=== PATIENT | male | born 1940 | race Caucasian/White ===

== ENCOUNTER 2018-05-04 02:44 | Observation (INO) | payer MEDICARE, BC ==
[~2018-05-04] VITALS: Ht 177.8 cm; Wt 112.9 kg
--- NOTE | ~2018-05-04 | HEMODYNAMI ---
PATIENT:SERGE MORENO MEDICAL RECORD: [id number] : 44 LOCATION:[facility] D.2130 ADMISSION DATE: 05/04/18 Generatedon:05/04/201815:25 Patient name: SERGE MORENO Patient #: [id number] SSN: : 1940 Date of study: 05/04/2018 Page: Of Hemodynamic Procedure Report Patient Data Patient Demographics Procedure consent was obtained First Name: SERGE Gender: Male Last Name: TIFFANIE : 1940 [facility] Initial: H Age: 78 year(s) Patient #: [id number] Race: Unknown Additional ID: [id number] Contact details Address: [address] [place] [address] State: [place] City: [facility] Zip code: [address] Past Medical History Allergies: No known allergies Admission Admission Data Admission Date: 05/04/2018 Admission Time: 5:26 Room #: D.2130 Height (in.): 69.69 BSA: 2.27 (m2) Height (cm.): 177 BMI: 35.43 (kg/m2) Weight (lbs.): 244.71 Weight (kg.): 111 Lab Results Lab Result Date: 05/04/2018 Lab Result Time: 0:00 Biochemistry Name Units Result Min Max BUN mg/dl 22 --(----)-* 7 18 Creatinine mg/dl 1 --(--*-)-- 0.6 1.3 CBC Name Units Result Min Max Hemoglobin g/dl 16.8 --(---*)-- 13.5 17.5 Procedure Procedure Types Cath Procedure Diagnostic Procedure C [facility] w/Coronaries Sedation Charges Moderate Sedation up to 15 minutes PCI Procedure Coronary Stent Coronary Stent Initial Procedure Description Procedure Date Procedure Date: 05/04/2018 Procedure Start Time: 14:51 Procedure End Time: 15:19 Procedure Staff Name Function Yonathan Cruz MD Performing Physician Kaelyn Richard RT Monitor Carina Oleary RN Nurse Nila Nichols RT Scrub Procedure Data Cath Procedure Fluoroscopy Diagnostic fluoroscopy Total fluoroscopy Time: 8 time: 8 min min Diagnostic fluoroscopy Total fluoroscopy dose: dose: 1745 mGy 1745 mGy Contrast Material Contrast Material Type Amount (ml) Isovue 300 87 Entry Location Entry Primary Successful Side Size Upsize Upsize Entry Closure Grande ccessful Closure Location (Fr) 1 (Fr) 2 (Fr) Remarks Device Remarks Femoral Right 6 Fr Mechanical artery Short Compression Estimated blood loss: 5 ml Diagnostic catheters Device Type Used For End Catheter Placement DIAGNOSTIC Gab 110cm Multi-vessel 5Fr catheter ([id number]) Angiography DIAGNOSTIC Lincoln 110cm 5 Multi-vessel Fr catheter ([id number]) Angiography Procedure Complications No complications Procedure Medications Medication Administration Route Dosage Oxygen etCO2 Nasal cannula 2 l/min Lidocaine 2% added to field 20 Heparin Flush Bag added to field 2 bags (1000units/500ml NS) 0.9% NaCl I.V. 100 ml/hr Radial Cocktail I.A. 1 syringe (Verapomil 2mg/Nitro 400mcg/Heparin 1500units) Versed I.V. 1 mg Fentanyl I.V. 100 mcg Versed I.V. 1 mg Fentanyl I.V. 50 mcg Fentanyl I.V. 50 mcg Heparin Bolus I.V. 42121 units Hemodynamics Rest BSA: 2.27 (m2) HGB: 16.8 (g/dl) O2 Consumption: Estimated: 259.71 (ml/min) O2 Co nsumption indexed: Estimated:114.41 (ml/min/m) Heart Rate: 69 (bpm) Pressure Samples Time Site Value (mmHg) Purpose Heart Use Rate(bpm) 14:56 LV 137/-1,20 Snapshot 67 Gradients Valve Time Site Site Mean SEP/DFP Peak To Heart Use 1 2 (mmHg) (sec/min) Peak Rate (mmHg) (bpm) Aortic 14:56 LV AO 68 Snapshots Pre Cath Intra NCS Post Cath Vital Signs Time Heart Resp SPO2 etCO2 NIBP (mmHg) Rhythm Pain Sedation Rate (ipm) (%) (mmHg) Status Level (bpm) 14:38:49 71 22 95 0 150/79(115) NSR 0 (11) 10(A) , No pain 14:43:07 70 22 93 39.9 139/77(120) NSR 0 (11) 10(A) , No pain 14:47:21 64 19 94 0 122/76(107) NSR 0 (11) 10(A) , No pain 14:51:26 63 17 95 37.6 132/80(104) NSR 0 (11) 9(A) , No pain 14:55:38 69 20 93 40.6 117/69(102) NSR 0 (11) 9(A) , No pain 14:59:44 66 13 94 33.1 122/77(92) NSR 0 (11) 9(A) , No pain 15:03:50 64 12 92 21.8 139/79(98) NSR 0 (11) 9(A) , No pain 15:08:04 70 14 93 42.9 139/77(98) NSR 0 (11) 9(A) , No pain 15:12:20 70 13 93 11.3 123/73(97) NSR 0 (11) 10(A) , No pain 15:16:28 70 12 92 15.8 125/75(94) NSR 0 (11) 10(A) , No pain Medications Time Medication Route Dose Verified Delivered Reason Not es Effectiveness by by 14:46:06 Oxygen etCO2 2 l/min Yonathan Buffie used for Nasal Ryan Oleary RN procedure cannula 14:46:15 Lidocaine 2% added 20ml Yonathan Yonathan for local to vial Ryan Cruz MD anesthetic field 14:46:34 Heparin Flush added 2 bags Yonathan Yonathan used for Bag to Ryan Cruz MD procedure (1000units/500ml field NS) 14:46:44 0.9% NaCl I.V. 100 Yonathan Buffie Per physician ml/hr Ryan Oleary RN 14:46:51 Radial Cocktail I.A. 1 Yonathan Yonathan for (Verapomil syringe Ryan Cruz MD vasodilation 2mg/Nitro 400mcg/Heparin 1500units) 14:47:06 Versed I.V. 1 mg Yonathan Buffie for sedation Ryan Oleary RN 14:47:12 Fentanyl I.V. 100 mcg Yonathan Buffie for sedation Ryan Oleary RN 14:49:09 Versed I.V. 1 mg Yonathan Buffie for sedation Ryan Oleary RN 14:49:13 Fentanyl I.V. 50 mcg Yonathan Buffie for sedation Cruz MD Oleary RN 14:53:54 Fentanyl I.V. 50 mcg Yonathan Lim for sedation Ryan Oleary RN 15:09:54 Heparin Bolus I.V. 11,500 Yonathan Lim for nilesh ified units Ryan Oleary RN anticoagulation with dr cruz Procedure Log Time Note 14:14:55 Patient Height : 69.69 inches 14:15:02 Patient Weight : 244.71 lbs 14:15:36 Lab Result : BUN 22 mg/dl 14:15:36 Lab Result : Hemoglobin 16.8 g/dl 14:15:36 Lab Result : Creatinine 1 mg/dl 14:15:37 Carina Oleary RN sent for patient. Start room use. 14:36:29 Diagnostic Cath status Elective 14:36:40 Time tracking: Regular hours (M-F 7:00 - 5:00) 14:36:46 Plan of Care:Hemodynamics will remain stable., Cardiac rhythm will remain stable., Comfort level will be maintained., Respiratory function will remain adequate., Patient/ family verbilizes understanding of procedure., Procedure tolerated without complication., Recovers from procedure without complications.. 14:37:31 Patient received from Med II to CCL 2 Alert and oriented. Tansferred to table in Supine position. 14:37:33 Warm blankets applied, and kandi hugger turned on for patient comfort. 14:37:34 Correct patient and procedure confirmed by team. 14:37:36 Signed procedure consent form obtained from patient. 14:37:38 ECG and BP/O2 sat monitors applied to patient. 14:37:39 Vital chart was started 14:37:40 Baseline sample Acquired. 14:37:44 Rhythm: sinus rhythm 14:37:46 Full Disclosure recording started 14:38:06 H&P Date Dictated: 05/04/2018 Within 30 days and on chart.. 14:38:09 Pre-procedure instructions explained to patient. 14:38:10 Pre-op teaching completed and patient verbalized understanding. 14:38:17 Family unavailable. 14:38:22 Patient NPO since Breakfast. 14:38:33 Patient allergic to No known allergies 14:38:42 Is patient on blood thinner?Yes 14:38:46 ACC The patient was administered the following blood thiners within the last 24 hours: ACCPlavix 14:38:52 Patient diabetic? No. 14:38:56 ----Pre-sedation anethsthesia assessment.---- 14:38:59 Previous problem with sedation/anesthesia? No ? 14:39:00 Snore? Yes 14:39:02 Sleep apnea? No 14:39:03 Deviated septum? No 14:39:04 Opens mouth fully? Yes 14:39:05 Sticks out tongue? Yes 14:39:09 Airway obstruction? No ? 14:39:12 Dentures? No ? 14:39:27 Pre procedure: right dorsailis pedis pulse 2+ Normal; easily identifiable; not easily obliterated 14:39:32 Patient pain scale 0/10 ?. 14:39:46 IV patent on arrival in left hand with 0.9% NaCl at [facility]. 14:39:53 Lab results completed and on chart. 14:40:03 Right Radial & Right Groin area was prepped with chlora-prep and draped in sterile fashion 14:40:05 Alarms reviewed by R. N. 14:40:06 Sharps counted by scrub and verified by R.N. 14:40:15 Use device set Radial Dx or PCI 14:40:16 ACIST Syringe (77413) opened to sterile field. 14:40:17 Medline Cath Pack ([id number]) opened to sterile field. 14:40:18 Bag Decanter (2002S) opened to sterile field. 14:40:19 DIAGNOSTIC WIRE .035 260cm J wire (915650) opened to sterile field. 14:40:19 ACIST Hand Control (46716) opened to sterile field. 14:40:20 ACIST Manifold (15499) opened to sterile field. 14:40:21 Tegaderm 4 x 4 (1626W) opened to sterile field. 14:40:21 MBrace Wrist Support ([id number]) opened to sterile field. 14:40:25 SHEATH 6FR Slender (801060) opened to sterile field. 14:43:01 Physician arrived 14:43:02 --------ALL STOP TIME OUT------ 14:43:02 Final Timeout: patient, procedure, and site verified with staff and physician. All members of the team are in agreement. 14:43:04 Right Radial & Right Groin site verified by team. 14:43:07 Physical assessment completed. ASA score P 2 - A patient with mild systemic disease as per Yonathan Cruz MD. 14:43:10 Sedation plan: IV Moderate Sedation Medication:Versed, Fentanyl 14:46:06 Oxygen 2 l/min etCO2 Nasal cannula was administered by Carina Oleary RN; used for procedure; 14:46:15 Lidocaine 2% 20ml vial added to field was administered by Yonathan Cruz MD; for local anesthetic; 14:46:34 Heparin Flush Bag (1000units/500ml NS) 2 bags added to field was administered by Yonathan Cruz MD; used for procedure; 14:46:44 0.9% NaCl 100 ml/hr I.V. was administered by Carina Oleary RN; Per physician; 14:46:51 Radial Cocktail (Verapomil 2mg/Nitro 400mcg/Heparin 1500units) 1 syringe I.A. was administered by Yonathan Cruz MD; for vasodilation; 14:47:06 Versed 1 mg I.V. was administered by Carina Oleary RN; for sedation; 14:47:12 Fentanyl 100 mcg I.V. was administered by Carina Oleary RN; for sedation; 14:49:09 Versed 1 mg I.V. was administered by Carina Oleary RN; for sedation; 14:49:13 Fentanyl 50 mcg I.V. was administered by Carina Oleary RN; for sedation; 14:51:08 Procedure started. 14:51:15 Local anesthetic to right radial artery with Lidocaine 2% by Yonathan Cruz MD.INITIAL ACCESS ONLY 14:52:23 A 6 Fr Short sheath was inserted into the Right Femoral artery 14:53:38 A DIAGNOSTIC Gab 110cm 5Fr catheter (706752) was advanced over the wire and used for Multi-vessel Angiography. 14:53:54 Fentanyl 50 mcg I.V. was administered by Carina Oleary RN; for sedation; 14:56:15 LV hemodynamics recorded. 14:56:16 LV gram done using BILL 14:56:19 Injector settings: Ml/sec: 5, Volume: 15, 14:56:28 EF : 55 % 14:58:22 Catheter removed. 14:58:49 A DIAGNOSTIC Lincoln 110cm 5 Fr catheter (560527) was advanced over the wire and used for Multi-vessel Angiography. 15:00:37 RCA angiography performed. 15:00:40 Injector settings: Ml/sec: 3, Volume: 6, 15:01:22 Catheter removed. 15:04:09 5f ultimate performa opened to field and used for multi-vessel angiography 15:04:15 LCA angiography performed. 15:04:17 Injector settings: Ml/sec: 3, Volume: 6, 15:05:56 Catheter removed. 15:05:57 Proceeding to intervention. 15:06:15 INFLATOR Merit BasixCompak (LT3594) opened to sterile field. 15:06:16 GUIDE 6FR XBLAD 3.5 catheter ([id number]) opened to sterile field. 15:06:24 BMW 300cm [place] 2 J wire ([id number]) opened to sterile field. 15:06:41 6 Fr xblad 3.5 guide catheter was inserted over the wire 15:06:51 TUBING High Pressure Extension Tubing (Ryan) (EX2127A) opened to sterile field. 15:09:54 Heparin Bolus 11,500 units I.V. was administered by Carina Oleary RN; for anticoagulation; verified with dr cruz 15:10:18 bmw wire advanced. 15:14:57 Place stent Inflation Number: 1 A FRANCES OTW 3.5 x 26 stent ([id number]) was prepped and advanced across the Mid LAD. The stent was deployed at 14 JENNIE for 0:10 (min:sec). 15:16:17 Stent catheter was removed intact over wire. 15:16:18 Wire removed. 15:16:19 Guide catheter removed. 15:16:29 TR BAND Standard ([id number]) opened to sterile field. 15:17:30 Sheath removed intact; hemostasis achieved with Mechanical Compression to the Right Femoral artery. 15:17:32 Procedure ended.(Physican Out) 15:17:44 Fluoroscopy time 08.00 minutes. 15:17:55 Fluoroscopy dose: 1745 mGy 15:17:55 Flurop Dose total: 1745 15:17:58 Contrast amount:Isovue 300 87ml. 15:18:00 Sharps counted by scrub and verified by R.N. 15:18:02 Insertion/operative site no bleeding no hematoma. 15:18:18 Post right radial artery:stable 15:18:20 Post Procedure Pulses reassessed and unchanged 15:18:22 Post procedure rhythm: unchanged. 15:18:25 Estimated blood loss: 5 ml 15:18:27 Post procedure instruction explained to patient.Patient verbalizes understanding. 15:18:27 Patient needs reinforcement of post procedure teaching. 15:18:50 Procedure type changed to Cath procedure, Diagnostic procedure, LHC, C w/Coronaries, Sedation Charges, Moderate Sedation up to 15 minutes, PCI procedure, Coronary Stent, Coronary Stent Initial 15:18:52 Procedure and supply charges have been captured, reviewed, submitted and are correct. 15:19:00 Procedure Complication : No complications 15:19:08 Vital chart was stopped 15:19:09 See physician's report for complete and final results. 15:19:16 Report given to Med II. 15:19:19 Patient transfered to Med II with Stretcher. 15:19:23 Procedure ended. 15:19:23 Full Disclosure recording stopped 15:19:31 ACC-PCI Only Patient was given prescriptions, or instructed by Yonathan Cruz MD to start/continue the following medications upon discharge: Plavix 15:19:33 End room use (Document Last) Intervention Summary Intervention Notes Time ActionType Lesion and Equipment Action# Pressure Duration Attributes Used 15:14:57 Place stent Mid LAD FRANCES OTW 3.5 1 14 00:10 x 26 stent ([id number]) Device Usage Item Name Manufacture Quantity Catalog Hospital Part Current Mini [facility] Lot# / Number Charge Number Stock Stock Serial# Code ACIST Syringe Acist 1 05455 324170 537286 579082 20 (94916) Medical Systems Inc Medline Cath Medline 1 [id number] 228743 49806 174383 5 Pack ([id number]) Bag Decanter Microtek 1 2001S 892565 86019 355871 5 () Medical Inc. DIAGNOSTIC [facility] Gil[place] 1 713984 488818 223317 007553 30 WIRE .035 260cm J wire (359740) ACIST Hand Acist 1 37139 537344 709121 885972 5 Control Medical (63753) Systems Inc ACIST Acist 1 67467 980154 880416 213566 5 Manifold Medical (95995) Systems Inc Tegaderm 4 x 3M 1 1626W 077391 565063 298493 5 4 (1626W) MBrace Wrist Advanced 1 140-0250-00 407853 24339 549892 5 Support Vascular (997993216) Dynamics SHEATH 6FR Terumo 1 [id number] 008961 368954 910825 40 Slender (80-1060) DIAGNOSTIC Terumo 1 40-5023 937931 241591 565222 5 Gab 110cm 5Fr catheter (270936) DIAGNOSTIC Terumo 1 40-5013 780292 116587 976336 5 Lincoln 110cm 5 Fr catheter (292124) INFLATOR Merit 1 RT1514 731449 630780 828391 15 Merit Medical BasixCompak (GG0634) GUIDE 6FR Cardinal 1 [id number] 212598 467081 648449 10 XBLAD 3.5 Health catheter (62769502) BMW 300cm Solomon 1 [id number] 693273 109810 006700 5 [place] 2 J Vascular wire (8454352V) TUBING High Merit 1 [id number] 356236 72918 900749 10 Pressure Medical Extension Tubing (Cruz) (LT6829P) FRANCES OTW 3.5 Medtronic 1 [id number] 451867 8723691 820339 5 [id number] x 26 stent ([id number]) TR BAND Terumo 1 [id number] 814133 358792 233696 40 Standard ([id number]) Signature Audit [place] Stage Time Signature Unsigned Intra-Procedure 05/04/2018 Kaelyn Richard 3:24:58 PM RT(R) Signatures Monitor : Kaleyn Richard RT Signature : Date : Time : [facility] [address] [place] [address]
--- NOTE | ~2018-05-04 | MORECARE ---
CASE MANAGEMENT DISCHARGE SUMMARY PATIENT: SERGE MORENO UNIT: [id number] ADM DATE: 05/04/18 AGE: 78 : 42 SEX: M ROOM/BED: D.2130 AUTHOR: CAROL YANG PHYSICIAN: REFERRING PHYSICIAN: TONJA CASANOVA MD DATE OF SERVICE: 05/06/18 Discharge Plan Patient Name: SERGE MORENO [facility] [facility] 1940 Planned Disposition: Home Anticipated Discharge Date: 05/05/18 Discharge Date: 05/05/2018 Expected LOS: 1 Initial Reviewer: [email or web address] Initial Review Date: 05/06/2018 Generated: 05/06/18 10:09 am Coverage Notice Reviewer: [email or web address] Magdalena Erwin Notice Issued Date-Time: 05/04/2018 14:20 Notice Type: Medicare Outpatient Observation Notice Notice Delivered To: Patient Relationship to Patient: Self Staff Nuclear Medicine Technologist Name: Delivery Method: HAND - Hand Delivered Cherelle Days: Prior Verbal Notification: Recipient Understood Notice: Yes Recipient Signature: Yes Med Rec Note Co-signed by Attending: Coverage Notice Comment: Patient Name: SERGE MORENO Page [phone] at 0909 All edits/amendments must be made on the electronic document DICTATION DATE: 05/06/18907 ALODIZE MACHINE HELPER: BARRY 05/06/18907 RPT#: [id number] DC DATE:05/05/18 STATUS: DIS IN [facility] [address] [place] [address] END OF REPORT
[2018-05-04 03:02] LABS: BASOPHILS 0.2 % (0-2); EOSINOPHILS 0.2 % (0-7); HEMATOCRIT 49.2 % (42.0-54.0); HEMOGLOBIN 16.8 g/dL (13.5-17.5); IMMATURE GRANULOCYTES 0.3 % (0-5); LYMPHOCYTES 5.5 % (15-50); MCH 31.2 pg (26.0-34.0); MCHC 34.1 g/dL (31.0-37.0); MCV 91.4 fL (80.0-100.0); MEAN PLATELET VOLUME 10.1 fL (7.4-10.4); MONOCYTES 4.8 % (2-11); PLATELET COUNT 205 10x3/uL (130-400); RBC 5.38 10x6/uL (4.20-6.10); RDW 13.5 % (11.5-14.5); WBC 18.3 10x3/uL (4.8-10.8)
[2018-05-04 03:16] LABS: ALBUMIN 3.4 g/dL (3.4-5.0); ALKALINE PHOSPHATASE 76 U/L (46-116); ALT (SGPT) 29 U/L (10-68); BILIRUBIN - TOTAL 0.55 mg/dL (0.2-1.3); CALC OSMOLALITY 290 mosm/kg (275-300); CALCIUM 9.1 mg/dL (8.5-10.1); CHLORIDE - SERUM 105 mmol/L (98-107); GLUCOSE 152 mg/dL (74-106); POTASSIUM - SERUM 4.1 mmol/L (3.5-5.1); PROTEIN - SERUM 7.4 g/dL (6.4-8.2); SODIUM 143 mmol/L (136-145); UREA NITROGEN 22 mg/dL (7-18); eGFR NON AFRICAN AMERICAN 77 mL/min (90-120)
[2018-05-04 03:31] LABS: AMYLASE - SERUM 32 U/L (25-115); CREATINE KINASE 79 UL (21-232); LIPASE 130 U/L (73-393); MAGNESIUM - SERUM 1.8 mg/dL (1.8-2.4)
[2018-05-04 03:33] LABS: TROPONIN-I 0.115 ng/mL (0.000-0.060)
[2018-05-04 05:01] VITALS: BP 143/69
[2018-05-04 06:12] VITALS: BP 131/67; BMI 33.0
[2018-05-04] MEDS ORDERED: LIPITOR10 MG PO (09:50)
[2018-05-04] MEDS ORDERED: VESICARE10 MG PO (09:50)
[2018-05-04] MEDS ORDERED: NEXIUM40 MG PO (09:51)
[2018-05-04] MEDS ORDERED: CENTRUM MEN'S1 EACH PO (09:51)
[2018-05-04] MEDS ORDERED: ACETAMINOPHEN325 MG PO (09:52)
[2018-05-04] MEDS ORDERED: GLUCOSAMINE HC500 MG PO (09:53)
[2018-05-04 12:58] VITALS: BP 140/64
[2018-05-04 21:04] VITALS: BP 131/69
[2018-05-05] VITALS: BP 133/52
[2018-05-05 05:03] VITALS: BP 118/76
[2018-05-05 06:02] LABS: BASOPHILS 0.5 % (0-2); EOSINOPHILS 2.3 % (0-7); HEMATOCRIT 46.6 % (42.0-54.0); HEMOGLOBIN 15.1 g/dL (13.5-17.5); IMMATURE GRANULOCYTES 0.2 % (0-5); MCH 30.4 pg (26.0-34.0); MCHC 32.4 g/dL (31.0-37.0); MEAN PLATELET VOLUME 10.5 fL (7.4-10.4); MONOCYTES 11.7 % (2-11); NEUTROPHILS 66.3 % (40-80); PLATELET COUNT 199 10x3/uL (130-400); RBC 4.97 10x6/uL (4.20-6.10); RDW 13.9 % (11.5-14.5)
[2018-05-05 06:27] LABS: MCV 93.8 fL (80.0-100.0); WBC 8.1 10x3/uL (4.8-10.8)
[2018-05-05 06:38] LABS: CALCIUM 8.4 mg/dL (8.5-10.1); CREATININE - SERUM 1.1 mg/dL (0.6-1.3)
[2018-05-05 08:56] VITALS: BP 139/76
[2018-05-05 11:04] VITALS: Ht 177.8 cm; Wt 112.9 kg
[2018-05-05 11:58] VITALS: BP 135/63
[2018-05-05] MEDS ORDERED: PLAVIX75 MG PO (13:45)
[2018-05-05] MEDS ORDERED: COREG 3.1253.125 MG PO (15:23)
[2018-05-05] MEDS ORDERED: ASPIRIN81 MG PO (15:24)
== END 2018-05-05 15:38 | disposition home or self-care (01) ==
LOC: EDSEX 02:44 → D.ER 02:44 → D.M2 05:26 → OBSVTIME 05:26 → D.M2 05:26
PROVIDERS: Family Medicine
DX: I21.4 Non-ST elevation (NSTEMI) myocardial infarction (principal); I25.119 Atherosclerotic heart disease of native coronary artery with unspecified angina pectoris
CPT/HCPCS: 93458; C9600

== ENCOUNTER → 2019-10-07 09:45 | Outpatient (CLI) | payer MEDICARE, BC ==
[2018-05-05 11:04] VITALS: BMI 35.7
[~2019-10-07 09:45] MED LIST: ACETAMINOPHEN325 MG PO; ASPIRIN81 MG PO; CENTRUM MEN'S1 EACH PO; COREG 3.1253.125 MG PO; GLUCOSAMINE HC500 MG PO; LIPITOR10 MG PO; NEXIUM40 MG PO; PLAVIX75 MG PO; VESICARE10 MG PO
== END | disposition home or self-care (01) ==
LOC: D.HCCARDIO 09:45
PROVIDERS: ATTEND Internal Medicine Cardiovascular Disease
DX: I25.119 Atherosclerotic heart disease of native coronary artery with unspecified angina pectoris (principal); I10 Essential (primary) hypertension; K21.9 Gastro-esophageal reflux disease without esophagitis

== ENCOUNTER → 2019-10-21 06:21 | Outpatient (CLI) | payer MEDICARE, BC ==
[~2019-10-21] VITALS: Ht 177.8 cm; Wt 108.7 kg
--- NOTE | ~2019-10-21 | HEMODYNAMI ---
PATIENT:SERGE MORENO MEDICAL RECORD: [id number] : 44 LOCATION:[facility] ADMISSION DATE: 10/21/19 Generatedon:10/21/20199:39 Patient name: SERGE MORENO Patient #: [id number] : 1940 Date of study: 10/21/2019 Page: Of Hemodynamic Procedure Report Patient Data Patient Demographics Procedure consent was obtained First Name: SERGE Gender: Male Last Name: TIFFANIE : 1940 [facility] Initial: FAITH Age: 79 year(s) Patient #: [id number] Race: Unknown SSN: [id number] Additional ID: [id number] Contact details Address: [address] [place] [address] State: [place] City: [facility] Zip code: [address] Past Medical History Allergies: No known allergies Admission Admission Data Admission Date: 10/21/2019 Admission Time: 6:21 Arrival Date: 10/21/2019 Arrival Time: 0:00 Height (in.): 70 BSA: 2.26 (m2) Height (cm.): 177.8 BMI: 34.48 (kg/m2) Weight (lbs.): 240.31 Weight (kg.): 109 Lab Results Lab Result Date: 10/21/2019 Lab Result Time: 0:00 Biochemistry Name Units Result Min Max BUN mg/dl 19 --(----)*- 7 18 Creatinine mg/dl 1.1 --(--*-)-- 0.6 1.3 eGFR ml/min 69 *-(----)-- 90 120 NONAFRICAN CBC Name Units Result Min Max Hematocrit % 47.3 --(-*--)-- 42 54 Hemoglobin g/dl 15.7 --(--*-)-- 13.5 17.5 Procedure Procedure Types Cath Procedure Diagnostic Procedure LHC LHC w/Coronaries Sedation Charges Moderate Sedation up to 15 minutes Procedure Description Procedure Date Procedure Date: 10/21/2019 Procedure Start Time: 9:20 Procedure End Time: 9:37 Procedure Staff Name Function Yonathan Davis MD Performing Physician Nila Nichols RT Monitor Jacqui Hudson RT Scrub Simi Moreno RN Nurse Procedure Data Cath Procedure Fluoroscopy Diagnostic fluoroscopy Total fluoroscopy Time: 4.9 time: 4.9 min min Diagnostic fluoroscopy Total fluoroscopy dose: 833 dose: 833 mGy mGy Contrast Material Contrast Material Type Amount (ml) Isovue 300 39 Entry Location Entry Primary Successful Side Size Upsize Upsize Entry Closure [place] ccessful Closure Location (Fr) 1 (Fr) 2 (Fr) Remarks Device Remarks Radial Right 6 Fr Mechanical artery Short Compression Estimated blood loss: 10 ml Diagnostic catheters Device Type Used For End Catheter Placement DIAGNOSTIC Gab 110cm Procedure 5Fr catheter ([id number]) DIAGNOSTIC [place] 110cm 5 Procedure Fr catheter ([id number]) Procedure Complications No complications Procedure Medications Medication Administration Route Dosage 0.9% NaCl I.V. 100 ml/hr Oxygen etCO2 Nasal cannula 2 l/min Lidocaine 2% added to field 20 Heparin Flush Bag added to field 2 bags (1000units/500ml NS) Radial Cocktail added to field 1 syringe (Verapamil 2mg/Nitro 400mcg/Heparin 1500units) Versed I.V. 2 mg Fentanyl I.V. 50 mcg Versed I.V. 2 mg Fentanyl I.V. 50 mcg Hemodynamics Rest BSA: 2.26 (m2) HGB: 15.7 (g/dl) O2 Consumption: Estimated: 250.79 (ml/min) O2 Co nsumption indexed: Estimated:110.97 (ml/min/m) Heart Rate: 60 (bpm) Pressure Samples Time Site Value (mmHg) Purpose Heart Use Rate(bpm) 9:25 LV 127/-6,15 Snapshot 66 Gradients Valve Time Site Site Mean SEP/DFP Peak To Heart Use 1 2 (mmHg) (sec/min) Peak Rate (mmHg) (bpm) Aortic 9:26 LV AO 73 Snapshots Pre Cath Intra NCS Post Cath Vital Signs Time Heart Resp SPO2 etCO2 NIBP (mmHg) Rhythm Pain Sedation Rate (ipm) (%) (mmHg) Status Level (bpm) 9:08:14 67 14 97 35.1 141/73(127) NSR 0 (11) 10(A) , No pain 9:12:38 61 16 97 38.9 141/74(109) NSR 0 (11) 10(A) , No pain 9:16:56 71 17 96 37.4 128/84(105) NSR 0 (11) 10(A) , No pain 9:21:12 65 16 97 35.9 121/81(102) NSR 0 (11) 10(A) , No pain 9:25:32 74 16 98 38.9 105/62(94) NSR 0 (11) 10(A) , No pain 9:29:44 65 15 97 37.4 107/65(98) NSR 0 (11) 9(A) , No pain 9:34:43 66 14 91 39.6 Measuring NSR 0 (11) 9(A) , No pain 9:34:54 68 14 92 38.9 115/65(101) NSR 0 (11) 10(A) , No pain Medications Time Medication Route Dose Verified Delivered Reason Notes Ef fectiveness by by 9:07:04 0.9% NaCl I.V. 100 Yonathan Simi used for ml/hr Ryan Moreno bass fisher 9:07:18 Oxygen etCO2 2 l/min Yonathan Simi used for Nasal Ryan Moreno procedure cannula RN 9:07:23 Lidocaine 2% added 20ml Yonathan Yonathan for local to vial Ryan Davis MD anesthetic field 9:07:28 Heparin Flush added 2 bags Yonathan Yonathan used for Bag to Ryan Davis MD procedure (1000units/500ml field NS) 9:07:37 Radial Cocktail added 1 Yonathan Yonathan used for (Verapamil to syringe Ryan Davis MD procedure 2mg/Nitro field 400mcg/Heparin 1500units) 9:18:41 Versed I.V. 2 mg Yonathan Simi for Fu lly awake @ Ryan Moreno sedation 9:30:16 RN 9:18:47 Fentanyl I.V. 50 mcg Yonathan Simi for Fu lly awake @ Ryan Moreno sedation 9:30:19 RN 9:26:03 Fentanyl I.V. [address] Simi [address] Moreno sedation sleeping @ RN 9:30:49 9:26:54 Versed I.V. [address] for [address] Moreno sedation sleeping @ RN 9:31:03 Procedure Log Time Note 8:47:43 Informed consent obtained and on chart 8:50:30 Simi Moreno RN sent for patient. Start room use. 8:58:11 Procedure Status Elective Heart Cath (OP). 8:58:12 Time tracking: Regular hours (M-F 7:00 - 5:00) 8:58:16 Plan of Care:Hemodynamics will remain stable., Cardiac rhythm will remain stable., Comfort level will be maintained., Respiratory function will remain adequate., Patient/ family verbilizes understanding of procedure., Procedure tolerated without complication., Recovers from procedure without complications.. 8:58:28 H&P Date Dictated: 10/05/2019 Within 30 days and on chart., H&P Addendum completed by physician on day of procedure. (MUST COMPLETE FOR ALL OUTPATIENTS). 8:58:36 Patient allergic to No known allergies 8:59:08 Lab Result : BUN 19 mg/dl 8:59:08 Lab Result : Creatinine 1.1 mg/dl 8:59:08 Lab Result : eGFR NONAFRICAN 69 ml/min 8:59:08 Lab Result : Hemoglobin 15.7 g/dl 8:59:08 Lab Result : Hematocrit 47.3 % 8:59:50 Patient Weight : 240.31 lbs 8:59:55 Patient Height : 70 inches 8:59:59 Arrival Date: 10/21/2019 12:00:00 AM 9:06:56 Vital chart was started 9:07:04 0.9% NaCl 100 ml/hr I.V. was administered by Simi Moreno RN; used for procedure; Verbal order read back and verified. 9:07:18 Oxygen 2 l/min etCO2 Nasal cannula was administered by Simi Moreno RN; used for procedure; Verbal order read back and verified. 9:07:23 Lidocaine 2% 20ml vial added to field was administered by Yonathan Davis MD; for local anesthetic; Verbal order read back and verified. 9:07:28 Heparin Flush Bag (1000units/500ml NS) 2 bags added to field was administered by Yonathan Davis MD; used for procedure; Verbal order read back and verified. 9:07:37 Radial Cocktail (Verapamil 2mg/Nitro 400mcg/Heparin 1500units) 1 syringe added to field was administered by Yonathan Davis MD; used for procedure; Verbal order read back and verified. 9:12:41 Warm blankets applied, and kandi hugger turned on for patient comfort. 9:12:43 Correct patient and procedure confirmed by team. 9:12:44 Baseline sample Acquired. 9:12:44 ECG and BP/O2 sat monitors applied to patient. 9:12:47 Full Disclosure recording started 9:12:55 Family in waiting room. 9:12:58 Patient NPO since Midnight. 9:13:01 Is the patient allergic to Iodine/contrast media? No. 9:13:04 Was the patient premedicated? Yes 9:13:08 Is patient on blood thinner?No 9:13:11 Patient diabetic? No. 9:13:16 Snore? Yes 9:13:17 Sleep apnea? No 9:13:23 Dentures? No ? 9:13:28 Patient pain scale 0/10 ?. 9:13:34 IV patent on arrival in left forearm with 0.9% NaCl at KVO. 9:13:41 Lab results completed and on chart. 9:13:47 Right Radial & Right Groin area was prepped with chlora-prep and draped in sterile fashion 9:13:49 Alarms reviewed by R. N. 9:13:49 Sharps counted by scrub and verified by R.N. 9:13:51 Physician paged 9:15:01 Physician arrived 9:17:31 Zero performed for pressure channel P1 9:17:34 --------ALL STOP TIME OUT------ 9:17:35 Final Timeout: patient, procedure, and site verified with staff and physician. All members of the team are in agreement. 9:17:37 Right Radial & Right Groin site verified by team. 9:17:42 Fire Safety Assessment: A--An alcohol-based skin anteseptic being used preoperatively., C--Open oxygen or nitrous oxide is being used., D--An ESU, laser, or fiber-optic light is being used. 9:17:49 Physical assessment completed. ASA score P 2 - A patient with mild systemic disease as per Yonathan Davis MD. 9:18:02 2) 60-89 Mildly reduced kidney function, and other findings (as for stage 1) point to kidney disease. 9:18:05 Maximum allowable contrast dose (3.7 X eGFR X 0.75)191 ml. 9:18:11 Sedation plan: IV Moderate Sedation Medication:Versed, Fentanyl 9:18:24 Use device set Radial Dx or PCI 9:18:27 ACIST Syringe (31493) opened to sterile field. 9:18:27 Medline Cath Pack ([id number]) opened to sterile field. 9:18:28 Bag Decanter (2002S) opened to sterile field. 9:18:29 ACIST Hand Control (05569) opened to sterile field. 9:18:29 ACIST Manifold (15572) opened to sterile field. 9:18:30 Tegaderm 4 x 4 (1626W) opened to sterile field. 9:18:31 MBrace Wrist Support ([id number]) opened to sterile field. 9:18:32 NEEDLE Cook 21G 4cm Radial (I25162) opened to sterile field. 9:18:34 EMERALD Guide Wire (504-933) opened to sterile field. 9:18:35 SHEATH 6FR RAIN (7243704) opened to sterile field. 9:18:41 Versed 2 mg I.V. was administered by Simi Moreno RN; for sedation; Verbal order read back and verified. 9:18:47 Fentanyl 50 mcg I.V. was administered by Simi Moreno RN; for sedation; Verbal order read back and verified. 9:19:54 Procedure started. 9:20:12 Local anesthetic to right radial artery with Lidocaine 2% by Yonathan Davis MD.INITIAL ACCESS ONLY 9:23:01 A 6 Fr Short sheath was inserted into the Right Radial artery 9:24:57 A DIAGNOSTIC Gab 110cm 5Fr catheter (464800) was advanced over the wire and used for Procedure. 9:25:38 LV angiography performed. 9:26:03 Fentanyl 50 mcg I.V. was administered by Simi Moreno RN; for sedation; Verbal order read back and verified. 9:26:11 EF : 55 % 9:26:54 Versed 2 mg I.V. was administered by Simi Moreno RN; for sedation; Verbal order read back and verified. 9:28:49 Catheter removed. 9:28:57 A DIAGNOSTIC [place] 110cm 5 Fr catheter (543606) was advanced over the wire and used for Procedure. 9:30:16 Effectiveness of Versed delivered @ 9:18:41 is: Fully awake 9:30:19 Effectiveness of Fentanyl delivered @ 9:18:47 is: Fully awake 9:30:49 Effectiveness of Fentanyl delivered @ 9:26:03 is: Mostly sleeping 9:31:03 Effectiveness of Versed delivered @ 9:26:54 is: Mostly sleeping 9:31:37 RCA angiography performed. 9:32:26 LCA angiography performed. 9:34:28 Catheter removed. 9:34:47 Sheath removed intact; hemostasis achieved with Mechanical Compression to the Right Radial artery. 9:34:49 Procedure ended.(Physican Out) 9:35:06 ZEPHYR REGULAR TR BAND (147679) opened to sterile field. 9:35:19 Fluoroscopy time 04.90 minutes. 9:35:26 Fluoroscopy dose: 833 mGy 9:35:26 Flurop Dose total: 833 9:35:33 Dose Area Product 89725 mGy/cm. 9:35:37 Contrast amount:Isovue 300 39ml. 9:35:39 Maximum allowable dose exceeded? No. 9:35:45 [place] band inflated with 10cc of air. 9:36:21 Insertion/operative site no bleeding no hematoma. 9:36:49 Post-procedure physical assessment completed. ASA score P 3 - A patient with severe systemic disease as per Yonathan Davis MD. 9:36:52 Post procedure rhythm: sinus rhythm 9:36:54 Estimated blood loss: 10 ml 9:36:56 Post procedure instruction explained to patient.Patient verbalizes understanding. 9:36:57 Patient needs reinforcement of post procedure teaching. 9:37:11 Procedure type changed to Cath procedure, Diagnostic procedure, LHC, C w/Coronaries, Sedation Charges, Moderate Sedation up to 15 minutes 9:37:13 Procedure and supply charges have been captured, reviewed, submitted and are correct. 9:37:32 Procedure Complication : No complications 9:37:35 Vital chart was stopped 9:37:39 [facility] Findings: mild to moderate CAD (<70%) 9:37:41 See physician's report for complete and final results. 9:37:42 Report given to Pre/Post Procedure Room. 9:37:45 Patient transfered to Pre/Post Procedure Room with Stretcher. 9:37:47 Procedure ended. 9:37:47 Full Disclosure recording stopped 9:37:50 End room use (Document Last) 9:37:51 End room use (Document Last) 9:37:51 End room use (Document Last) 9:38:23 End room use (Document Last) 9:38:44 End room use (Document Last) Device Usage Item Name Manufacture Quantity Catalog Hospital Part Current Minima l Lot# / Number Charge Number Stock Stock Serial# Code ACIST Acist 1 43800 392877 626606 [id number] 20 Syringe Medical (24427) Systems Inc Medline Medline 1 [id number] 646287 81882 071461 5 Cath Pack ([id number]) Bag Microtek 1 2001S 211894 35600 257207 5 Decanter Medical Inc. () ACIST Hand Acist 1 04696 742228 700765 592072 5 Control Medical (73068) Systems Inc ACIST Acist 1 10263 227567 228538 902363 5 Manifold Medical (81416) Systems Inc Tegaderm 4 3M 1 1626W [id number] 818028 457144 5 x 4 (1626W) MBrace Advanced 1 140-0250-00 309988 98102 767365 5 Wrist Vascular Support Dynamics ([id number]) NEEDLE Cook Cook Medical 1 [id number] 476807 672269 039108 5 21G 4cm Radial (V00565) EMERALD Cardinal 1 502-455 820814 014389 127988 5 Guide Wire Health (502-455) SHEATH 6FR Cardinal 1 [id number] 263801 2990473 706333 5 [facility] Health (7495300) DIAGNOSTIC Terumo 1 40-5023 263628 691027 867024 5 Gab 110cm 5Fr catheter (445104) DIAGNOSTIC Terumo 1 40-5013 507174 921999 749417 5 [place] 110cm 5 Fr catheter (683317) ZEPHYR Cardinal 1 939234 334149 5464475 734847 5 REGULAR TR Health BAND (197124) Signature Audit [place] Stage Time Signature Unsigned Intra-Procedure 10/21/2019 Nila Nichols 9:38:23 AM RT(R) Intra-Procedure 10/21/2019 Simi Moreno 9:38:44 AM RN Intra-Procedure 10/21/2019 Yonathan Davis MD 9:39:14 AM [facility] [address] [place] [address]
[~2019-10-21 06:21] MED LIST changes: +AMBIEN10 MG PO; +OMEPRAZOLE40 MG PO; +PROBIOTIC250 MG PO
[2019-10-21 07:35] VITALS: BP 145/49; Ht 177.8 cm; Wt 108.7 kg
[2019-10-21 07:38] LABS: BASOPHILS 0.7 % (0-2); EOSINOPHILS 1.8 % (0-7); HEMATOCRIT 47.3 % (42.0-54.0); HEMOGLOBIN 15.7 g/dL (13.5-17.5); IMMATURE GRANULOCYTES 0.1 % (0-5); LYMPHOCYTES 21.4 % (15-50); MCH 30.7 pg (26.0-34.0); MCHC 33.2 g/dL (31.0-37.0); MCV 92.6 fL (80.0-100.0); MEAN PLATELET VOLUME 9.8 fL (7.4-10.4); MONOCYTES 11.8 % (2-11); NEUTROPHILS 64.2 % (40-80); PLATELET COUNT 207 10x3/uL (130-400); RBC 5.11 10x6/uL (4.20-6.10); RDW 13.3 % (11.5-14.5); WBC 6.7 10x3/uL (4.8-10.8)
[2019-10-21 07:50] LABS: ANION GAP 8.5 mmol/L (8-16); CALCIUM 8.9 mg/dL (8.5-10.1); CARBON DIOXIDE 25.5 mmol/L (21.0-32.0); CHOL - HDL RATIO 4.3 ratio (2.3-4.9); CREATININE - SERUM 1.1 mg/dL (0.6-1.3); LDL-HDL RATIO 2.4 ratio (1.5-3.5)
--- NOTE | 2019-10-21 09:45 | NUR ---
PT RECEIVED BACK TO ROOM VIA STRETCHER FOR RECOVERY. PT AWAKE, SLIGHTY DROWSY. PT DENIES PAIN OR DISCOMFORT. PLACED ON CARDIAC MONITORS AND O2 VIA NC AT 2L. HR NSR RATE 61, BP 128/67, RR 16, SAT 96. ZYPHER BAND AND IMMOBILIZER TO R WRIST/ARM, NO S/S HEMATOMA OR BLEEDING NOTED. ARM PINK AND WARM, CAP REFILL BRISK. PT INSTRUCTED NOT TO USE THAT ARM, HE VERBALIZED UNDERSTANDING. IV PATENT INFUSING VIA ORDERS TO L ARM. CALL LIGHT IN REACH, DAUGHTER AT BS. PT GIVEN SIPS OF APPLE JUICE. DR JETT WAS IN ROOM PRIOR TO PT ARRIVAL AND SPOKE WITH DAUGHTER REGARDING PLAN OF CARE AND PROCEDURE RESULTS.
--- NOTE | 2019-10-21 10:15 | NUR ---
PT DOING WELL, DENIES PAIN OR DISCOMFORT. HR 67, BP 113/59, RR 14, SAT 96. ZBAND AND IMMOBILIZER IN PLACE, DRESSING CDI NO S/S HEMATOMA OR BLEEDING. CAP REFILL BRISK. PT GIVEN CRACKERS AND PB PER REQUEST. CALL LIGHT IN REACH, YAKELIN REMAINS AT BS.
--- NOTE | 2019-10-21 11:05 | NUR ---
5cc AIR REMOVED FROM ZYPHER BAND, NO BLEEDING OR SWELLING NOTED. VSS. ARM REMAINS PINK AND WARM, CAP REFILL BRISK. PT DENIES NEEDS AT THIS TIME. CALL LIGHT IN REACH
--- NOTE | 2019-10-21 11:55 | NUR ---
REMAINING AIR REMOVED FROM Z BAND, NO BLEEDING OR S/S HEMATOMA NOTED. DISCHARGE INSTRUCTIONS REVIEWED W PT AND DAUGHTER, THEY VERBALIZED UNDERSTANDING. IV REMOVED W CATH INTACT, MONITORS AND O2 REMOVED. PT UP TO DRESS FOR DISCHARGE W ASSIST FROM DAUGHTER
== END | disposition home or self-care (01) ==
LOC: D.CATH 06:21
PROVIDERS: ATTEND Internal Medicine Cardiovascular Disease
DX: I25.119 Atherosclerotic heart disease of native coronary artery with unspecified angina pectoris (principal); I10 Essential (primary) hypertension; I47.1 Supraventricular tachycardia; K21.9 Gastro-esophageal reflux disease without esophagitis